=== PATIENT | male | born 1960 | race Caucasian/White ===

== ENCOUNTER 2021-10-06 16:57 | Emergency (ER) | payer OTHER ==
[2021-10-06 17:56] LABS: ANION GAP 12.8 mmol/L (5-15); CHLORIDE,CL 106 mmol/L (98-107); SODIUM,NA 142 mmol/L (136-145)
[2021-10-06] MEDS ORDERED: Ibuprofen 600 MG Tab PO ONE (18:40)
[2021-10-06] MEDS ORDERED: Acetaminophen 500 MG Tab PO ONE (18:40)
[2021-10-06] MEDS ORDERED: Nitroglycerin 0.4 MG Tab.SL SL PRN (18:47)
== END 2021-10-06 21:05 | disposition home or self-care (01) ==
LOC: KA.ED 16:57
DX: S22.41XA Multiple fractures of ribs, right side, initial encounter for closed fracture (principal); Z88.8 Allergy status to other drugs, medicaments and biological substances; Z79.82 Long term (current) use of aspirin; Z79.899 Other long term (current) drug therapy; W17.89XA Other fall from one level to another, initial encounter
CPT/HCPCS: 36415; 71101-RT; 80048; 84484; 85025; 93005; 99283; 99284-25; A9270-GY